=== PATIENT | female | born 2000 | race Asian ===

== ENCOUNTER 2018-10-15 19:43 | Emergency (ER) | payer BC ==
[~2018-10-15] VITALS: Ht 157.5 cm; Wt 65.6 kg
--- NOTE | 2018-10-15 20:05 | NUR ---
URINE CUP AND INSTRUCTIONS FOR CLEAN CATCH PROVIDED. Addendum: 10/15/18 at 2142 by JOSE Amendment [email or web address] in ED - 10/15/18 at 2142 by JOSE PT NOTIFIED OF NPO STATUS
[2018-10-15] MEDS ORDERED: SODIUM CHLORIDE FLUSH 10ML SYR IVF ONE (20:30)
[2018-10-15 20:41] LABS: BASOPHILS # (AUTO) 0.03 x10^3/uL (0-0.3); BASOPHILS % (AUTO) 0 % (0-1); EOSINOPHILS # (AUTO) 0.04 x10^3/uL (0-0.8); EOSINOPHILS % (AUTO) 0 % (1-7); LYMPHOCYTES # (AUTO) 2.27 x10^3/uL (1-6.1); LYMPHOCYTES % (AUTO) 26 % (22-44); MD NO; MEAN CORPUSCULAR HGB CONC 34.7 g/dL (32.4-35.8); MEAN CORPUSCULAR VOLUME 89.3 fL (80-100); MEAN PLATELET VOLUME 7.2 fL (7.4-10.4); MONOCYTES # (AUTO) 0.54 x10^3/uL (0-1.4); MONOCYTES % (AUTO) 6 % (2-9); NEUTROPHILS # (AUTO) 5.76 x10^3/uL (1.8-8.0); NEUTROPHILS % (AUTO) 67 % (42-75); PLATELET COUNT 304 x10^3/uL (130-400); RED BLOOD COUNT 5.18 x10^6/uL (3.82-5.3); RED CELL DISTRIBUTION WIDTH 12.9 % (9.6-15.2)
[2018-10-15 20:47] LABS: ANION GAP 7 mmol/L (5-15); CALCIUM 8.9 mg/dL (8.5-10.1); CHLORIDE 108 mmol/L (98-107); CREATININE 0.85 mg/dL (0.55-1.02)
--- NOTE | 2018-10-15 21:39 | NUR ---
PT STATES SHE WAS SENT HERE FROM [facility] FOR ADDITIONAL TESTING. C/O RLQ PAIN, SLIGHT RADIATION TO RT FLANK. SX STARTED 1 WK AGO. REPORTS NAUSEA, DIARRHEA & CONSTIPATION - LAST BM - 1899 TODAY "PIECES". LAST ORAL INTAKE: DINNER 1839 TODAY. TOOK ADVIL THIS MORNING. Addendum: 10/15/18 at 2143 by JOSE PT NOTIFIED OF NPO STATUS
[2018-10-15 23:00] LABS: CULTURE INDICATED? NO; HCG UR SG 1.022 (1.003-1.030); MICROSCOPIC NOT IND
[2018-10-15] MEDS ORDERED: [UNRECOGNIZED DRUG - REMARK] (23:11)
--- NOTE | 2018-10-15 23:19 | NUR ---
PT NEED IV FOR CT
--- NOTE | 2018-10-15 23:30 | NUR ---
received report from Nayeli. pt upright on gurney awake & comfortable, responds approp to staff, NAD, at BS, comfort measures provided, call light within reach.
--- NOTE | 2018-10-15 23:37 | NUR ---
pt to CT
[2018-10-15] MEDS ORDERED: OMNIPAQUE 350 MG/ML, 100ML BOTTLE ONE (23:47)
--- NOTE | 2018-10-16 00:01 | NUR ---
pt returned from CT, upright on gurney awake & comfortable, responds approp to staff, NAD, at BS, comfort measures provided, call light within reach.
--- NOTE | 2018-10-16 00:21 | NUR ---
report given to Pepe
--- NOTE | 2018-10-16 00:24 | NUR ---
received report from JEFF Díaz. awaiting plan of care
--- NOTE | 2018-10-16 01:09 | NUR ---
re-evaluation done. patient discharged with instruction. verbalized understanding.
[2018-10-16 01:10] VITALS: BP 97/59
== END 2018-10-16 01:20 | disposition home or self-care (01) ==
LOC: ED 23:59
DX: R10.31 Right lower quadrant pain (principal)
CPT/HCPCS: 36415; 74177; 76830; 80048; 81003; 81025; 82040; 85025; 99284; Q9967